=== PATIENT | female | born 1945 | race Caucasian/White ===

== ENCOUNTER 2020-03-03 13:53 | Outpatient (CLI) | payer MEDICARE, SELFPAY ==
--- NOTE | ~2020-03-03 | DEXA_ITS ---
Bone Density Report Name: Courtney Mckeon Age: 74 Sex: Female Ethnicity: White Date of : 1945 Indication: postmenopausal; cancer; Referring Provider: Ashley Tucker Study: Bone densitometry was performed. Exam Date: March 03, 2020 Accession number: [id number] Bone Density: Region BMD T-score Z-score Classification AP Spine (L1-L4) 0.828 -2.0 0.4 Osteopenia Femoral Neck (Left) 0.611 -2.1 -0.1 Osteopenia Total Hip (Left) 0.755 -1.5 0.2 Osteopenia Total Hip Bilateral Avg 0.760 -1.5 0.3 Osteopenia Femoral Neck (Right) 0.658 -1.7 0.3 Osteopenia Total Hip (Right) 0.765 -1.5 0.3 Osteopenia World Health Organization criteria for BMD impression classify patients as: Normal (T-score at or above -1.0), Osteopenia (T-score between -1.0 and -2.5), or Osteoporosis (T-score at or below -2.5). 10-year Fracture Risk(1): Major Osteoporotic Fracture 12% Hip Fracture 3.5% Reported Risk Factors: [place] (), Neck BMD=0.611, BMI=21.2 (1) FRAX(R) Version 3.08. Fracture probability calculated for an untreated patient. Fracture probability may be lower if the patient has received treatment. Clinical Information Provided by Patient: Has the following medical conditions: Cancer Patient maximum height was 62 Menopause Age: 53 Onset of menses at age 13 Number of children 1 Impression: The patient has low bone mass, based on the Left Femoral Neck T-score. The patient has an estimated ten-year risk of hip fracture of 3.5% and an estimated ten-year risk of major fracture of 12%, based on the WHO FRAX algorithm. Discussion: BONE DENSITY IS LOW AT ONE OR MORE SKELETAL SITES. THE PATIENT'S BMD AND CLINICAL RISK FACTORS CONTRIBUTE TO THIS PATIENT'S INCREASED RISK OF FRACTURE. This patient's lowest T-score is low at one or more skeletal sites. It meets the World Health Organization's (WHO) criteria for ?low bone mass? (T-score between -1.0 and -2.5). The patient's 10-year risk of hip fracture as calculated by FRAX exceeds the threshold where pharmacological therapy is recommended by the National Osteoporosis Foundation (NOF). However, all treatment decisions require clinical judgment and consideration of individual patient factors, including patient preferences, comorbidities, previous drug use, risk factors not captured in the FRAX model (e.g., frailty, falls, vitamin D deficiency, increased bone turnover, interval significant decline in bone density) and possible under or overestimation of fracture risk by FRAX. The patient should follow a healthful lifestyle (good nutrition with adequate calcium and vitamin D, and appropriate weight-bearing exercise). Follow-Up: Consider a repeat BMD and Vertebral Fracture Assessment (VFA) exam in 2 years or sooner if medically necessary, to reassess this patient's status.
--- NOTE | ~2020-03-03 | MM_ITS ---
EXAMINATION: MM screening marisa BI w funmi HISTORY: Screening mammogram TECHNIQUE: Craniocaudal and mediolateral oblique 3-D tomosynthesis images were obtained and synthetic 2-D images were generated. Bilateral rotated lateral CC views. CAD analysis was submitted and interp reted. COMPARISON: No prior mammogram is available for comparison at this institution. BREAST PARENCHYMAL COMPOSITION: The breasts are extremely dense, which lowers the sensitivity of mamm ography. FINDINGS: There is no evidence of suspicious mass, calcification, or architectural distortion to sugg est malignancy in either breast. There has been no suspicious interval change. IMPRESSION: 1. No mammographic evidence of malignancy. 2. Recommend routine screening mammography in one year. BI-RADS Category 1: Negative Reviewed, dictated and finalized at location A.
== END 2020-03-03 13:54 | disposition home or self-care (01) ==
LOC: ANHIMG 13:57
PROVIDERS: PCP Internal Medicine; Visit Provider Internal Medicine
DX: M85.89 Other specified disorders of bone density and structure, multiple sites (principal); Z12.31 Encounter for screening mammogram for malignant neoplasm of breast
CPT/HCPCS: 77063; 77067; 77080

== ENCOUNTER 2020-08-03 05:20 | Observation (INO) | payer MEDICARE, SELFPAY ==
[2020-08-03] VITALS (10 sets, daily range): BP systolic 97–113; BP diastolic 48–98; PULSE 72–120; RESP 15–23; TEMP 36.6–37; O2SAT 96–100; BMI 20.7
[2020-08-03 06:00] LABS: Basophils Percent Auto 0.2 % (0.2-1.2); Eosinophils Percent Auto 0.2 % (0-4.4); Hematocrit 25.2 % (37.0-47.0); Hemoglobin 8.3 g/dL (12.0-15.0); Immature Granulocyte Absolute 0.03 K/mm3 (0.00-0.031); Immature Granulocyte Percent A 0.2 % (0-0.5); Lymphocytes Absolute Auto 1.76 K/mm3 (0.9-3.2); Lymphocytes Percent Auto 14.4 % (18.3-44.2); Mean Corpuscular HGB Conc 32.9 g/dl (32-36); Mean Corpuscular Hemoglobin 28.8 pg (26-34); Mean Corpuscular Volume 87.5 fl (80-100); Mean Platelet Volume 9.2 fl (7.4-10.4); Monocytes Absolute Auto 0.9 K/mm3 (0.1-0.6); Monocytes Percent Auto 7.6 % (2.6-8.5); Neutrophils Absolute Auto 9.4 K/mm3 (1.3-6.7); Neutrophils Percent Auto 77.4 % (45.5-73.1); Platelet Count Result 335 k/mm3 (150-375); Red Blood Count 2.88 M/mm3 (4.2-5.4); Red Cell Distribution Width 13.4 % (11.5-14.5); White Blood Count 12.2 K/mm3 (4.5-10.0)
[2020-08-03 06:08] LABS: Add Urine Microscopic? YES; Appearance Urine Clear (Clear); Bacteria Urine Trace /hpf; Bilirubin Urine Negative (Negative); Blood Urine 3+ (Negative); Color Urine Straw (Yellow); Glucose Urine UA Negative (Negative); Ketones Urine Trace mg/dL (Negative); Leukocyte Esterase Ur Negative LEU/UL (Negative); Mucus Urine Rare /lpf; Nitrate Urine Negative (Negative); Protein Urine Negative (Negative); RBC Urine 0-2 /hpf (0-2); Specific Grav Ur 1.016 (1.001-1.035); Squamous Epithelial Cell Urine Rare /hpf (Few); Urobilinogen Urine Negative mg/dL (<2.0); WBC Urine 0-3 /hpf
[2020-08-03 06:10] LABS: Alanine Aminotransferase 19 U/L (4-35); Albumin Level 2.9 g/dL (3.5-5.1); Alkaline Phosphatase 111 U/L (38-126); Anion Gap 5 mmol/L (8-16); Aspartate Amino Transferase 25 U/L (14-36); Bilirubin,Total 0.6 mg/dL (0.2-1.3); Blood Urea Nitrogen 47 mg/dL (7-17); Calcium 7.5 mg/dL (8.4-10.2); Carbon Dioxide 25 mmol/L (22-30); Chloride 106 mmol/L (98-107); Estimated Glomerular Filt Rate > 60; Glucose 110 mg/dL (65-105); Lipase 56 U/L (23-300); Potassium 3.9 mmol/L (3.4-5.0); Sodium 136 mmol/L (137-145)
[2020-08-03 06:13] LABS: INR 1.1; Prothrombin Time 14.3 Seconds (11.1-14.7)
[2020-08-03 06:14] LABS: Partial Thromboplastin Time 32.1 SECONDS (22.3-36.8)
--- NOTE | 2020-08-03 06:20 | ED.ABDPAIN ---
HPI - Abdominal Pain General Chief Complaint: Abdominal Pain Stated Complaint: GI BLEED Time Seen by Provider: 08/03/20 05:21 Source: RN notes reviewed History of Present Illness HPI narrative: Patient presents emergency department via EMS for weakness. Patient states she is been feeling weak over the past approximately 3 weeks. She states that during this time she has been having intermittent episodes of abdominal pain located in the epigastric region as well as intermittent episodes of loose stool the patient states that time contains red blood in it. Patient states that this evening she had several episodes of dark diarrhea and had one episode of emesis. When EMS arrived they noted the emesis appeared coffee-ground in appearance. At this time she states she has no complaints outside of weakness she denies any fevers or chills chest pain shortness of breath denies any current abdominal pain nausea or vomiting. Patient states she is on no blood thinners. Recently moved here from [place] of town and last colonoscopy was over 5 years ago Related Data Home Medications Medication Instructions Recorded Confirmed levothyroxine 08/03/20 ursodiol 250 mg PO BID 08/03/20 08/03/20 Allergies Allergy/AdvReac Type Severity Reaction Status Date / Time Latex, Natural Rubber Allergy Rash Verified 08/03/20 05:35 prochlorperazine Allergy Unknown Verified 08/03/20 05:35 [From Compazine] Review of Systems Review of Systems: Narrative: Gen.: Denies fevers or chills ENT: Denies congestion Respiratory: Denies shortness of breath or cough CV: Denies chest pain or palpitations GI: See HPI denies burning, urgency, frequency or hematuria Musculoskeletal: Denies back pain or muscle pain Neuro: Generalized weakness Skin: Denies rash Except as documented, all other systems reviewed and negative [facility] Past Medical History Medical History (Updated 08/03/20 @ 06:32 by Manuel Nixon DO) Hypothyroidism Social History Social History (Updated 08/03/20 @ 06:21 by Manuel Nixon DO) Smoking status: Never smoker Exam Narrative: Exam Narrative: APPEARANCE: No acute distress, nontoxic, resting in bed EYES: EOMI HEENT: Normocephalic, atraumatic, OMM RESPIRATORY: No respiratory distress Clear to auscultation bilaterally with no rhonchi wheezing or rales. CARDIOVASCULAR: Regular rate and rhythm without murmurs rubs or gallops. ABDOMINAL: Soft, nontender, nondistended, no rebound or guarding Rectal: Hemorrhoids present with no fissures no active bleeding, black stool present that is Hemoccult positive MUSCULOSKELETAl: Moves all extremities. No clubbing, cyanosis or edema. NEURO: Awake and alert. Following commands, speech normal, no focal deficits SKIN:: Warm, dry. No rashes lesions or abrasions PSYCHIATRIC: Normal affect/mood, Course Course Emergency Course: Discussed with Dr. Mckay for GI presentation work-up. Agrees with consult at this time. Agrees with plan for Protonix 40 mg twice daily Discussed with Dr. Salas presentation work-up. Agrees with admission at this time Discussed with patient and family results of workup and diagnosis. Discussed need for admission. Patient and family understand and agree to current treatment plan Vital Signs Vital signs: Vital Signs Temperature 97.9 F 08/03/20 05:21 Pulse Rate 91 08/03/20 05:21 Respiratory Rate 23 H 08/03/20 05:21 Blood Pressure 110/55 L 08/03/20 05:21 Pulse Oximetry 99 08/03/20 05:21 Temperature 97.9 F 08/03/20 05:21 Pulse Rate 81 08/03/20 06:21 Respiratory Rate 16 08/03/20 06:21 Blood Pressure 109/98 H 08/03/20 06:21 Pulse Oximetry 99 08/03/20 06:21 MDM - Abdominal Pain Lab Data Result diagrams: 08/03/20 05:46 08/03/20 05:46 Labs: Lab Results 08/03/20 08/03/20 08/03/20 Range/Units 05:43 05:46 05:46 WBC 12.2 H (4.5-10.0) K/mm3 RBC 2.88 L (4.2-5.4) M/mm3 Hgb 8.3 L (12.0-
[2020-08-03] MEDS: SODIUM CHLORIDE 0.9% IV 1,000 ML 999 ML IV CONT (06:26)
[2020-08-03] MEDS: PANTOPRAZOLE SODIUM IV 40 MG VIAL IV PUSH ×2 (06:26→18:38)
--- NOTE | 2020-08-03 07:37 | PC.NURSE ---
called to give report and was told that the SBAR literally came out of the tube ( sbar was faxed at [phone]), I will have the nurse call you when she is out of a room.
--- NOTE | 2020-08-03 08:05 | ADMGEN ---
This patient, Courtney Mckeon, was admitted to Medical Room 252-01. Patient/family oriented to hospital policies and general routines including ID bracelet, bed and alarms, visiting hours, pain management, procedures, bathroom and other care routines, personal items, smoking policy, room service/diet, and visiting hours. Valuables list has been completed. Information on how to activate the Rapid Response Team has been discussed. Patient/Family are encouraged to report perceived risks to care and to ask questions if they do not understand what they are told or what they should do.
[2020-08-03] MEDS: SODIUM CHLORIDE 0.9% IV 1,000 ML 80 ML IV CONT ×2 (08:22→21:13)
--- NOTE | 2020-08-03 08:58 | PM.IMHP ---
H&P: HPI History of Present Illness Date/Time: 08/03/20 08:58 Chief complaint: GI bleed/symptomatic anemia Narrative: Date of admission: 08/03/2020 Date of service: 08/03/2020 Courtney Mckeon is a 74 year old female A history of hypothyroidism, primary biliary cirrhosis, and melanoma who presented to the emergency department on 08/03/2020 with complaints of epigastric pain and coffee-ground emesis. She reports that she has had several weeks of gnawing epigastric pain and lower abdominal cramping that worsens when she has bowel movements. She also complains of lightheadedness and presyncope for about 2 weeks, again associated with bowel movements. She denies straining. Early this morning, she felt nauseous and went to the bathroom. She then felt faint and lightheaded. She had a large volume of coffee-ground emesis at that time. That her noticed that she had a dark, tarry stool which filled bowl. She did not see this stool as she was lying on the ground, which helped relieve her lightheadedness. She felt short of breath during this episode. upon arrival to the emergency department, she notes feeling lightheaded upon ambulating to her room and feels that she briefly lost consciousness. She did not fall or hit her head. At arrival, hemoglobin was 8.3 and hematocrit was 25.2. She has not had any further episodes of emesis or bowel movements since presentation. At this time, she complains of headache, especially in the left temporal region. She reports chronic headaches and this feels like her typical. She also endorses nausea at this time. She reports having a colonoscopy about 5 years ago and believes that polyps were identified but is unclear when she is due for her next colonoscopy. She has never had an EGD. She reports that she often takes [id number] headache relief medication consisting of acetaminophen, aspirin, and caffeine. Review of Systems Review of Systems: Narrative: 12 systems reviewed with pertinent positive and negatives as per HPI. additionally, she denies visual changes, speech changes, dysphagia, chest pain, palpitations, constipation, diarrhea, fever, chills, dizziness , numbness, tingling, or lower extremity edema.. She feels weaker than normal. [facility] Past Medical History Medical History (Updated 08/03/20 @ 12:46 by Lisa Nunez PA-C) History of melanoma S/p local excision and systemic interferon therapy Hypothyroidism Melena Migraine Primary biliary cirrhosis Syncope Surgical History Surgical History (Updated 08/03/20 @ 12:18 by Lisa Nunez PA-C) H/O melanoma excision History of hemorrhoidectomy Family History Family History (Updated 08/03/20 @ 12:20 by Lisa Nunez PA-C) Mother Dementia Father Lung cancer Social History Social History (Updated 08/03/20 @ 12:28 by Lisa Nunez PA-C) Social History: Supriya lives at home with her . She is independent in her ADLs and remains active. Her PCP is Dr. Tucker. She designates her , Robert, as her surrogate decision maker She would like to be a full code. Smoking packs per day: 1 Smoking cigarettes per day: 20.0 Smoking status: Former smoker Tobacco type: cigarettes Additional smoking assessment comments: Smoked 1 ppd for 10 years Alcohol intake: former Alcohol use details: No alcohol use in >10 years Substance use: never Living arrangements: with family Gender identity (if verbalized by the patient): Female Spiritual care concerns: No Meds Home Medications and Allergies Home Medications Medication Instructions Recorded Confirmed Type levothyroxine 08/03/20 History ursodiol 250 mg PO BID 08/03/20 08/03/20 History Allergies Allergy/AdvReac Type Severity Reaction Status Date / Time Latex, Natural Rubber Allergy Rash Verified 08/03/20 05:35 prochlorperazine Allergy Unknown Verified 08/03/20 05:35 [From Compazine] Vital Signs Vital Signs -
[2020-08-03 09:01] LABS: Hematocrit 25.3 % (37.0-47.0); Hemoglobin 8.6 g/dL (12.0-15.0)
--- NOTE | 2020-08-03 10:09 | WPDGICN ---
Assessment and Plan Assessment and plan (1) Melena: Code(s): K92.1 - Melena Status: Acute Assessment and Plan: she came in with upper GIB, will proceed with egd tomorrow (2) Acute GI bleeding: Code(s): K92.2 - Gastrointestinal hemorrhage, unspecified Status: Acute Assessment and Plan: continue with ppi bid, avoid any nsaid's last colonoscopy about 5 years ago, she will review records to check when she would need to have next one (3) Symptomatic anemia: Code(s): D64.9 - Anemia, unspecified Status: Acute Assessment and Plan: trend h/h and transfuse if hb<7 (4) Syncope: Code(s): R55 - Syncope and collapse Status: Acute Assessment and Plan: probably from symptomatic anemia (5) Primary biliary cirrhosis: Code(s): K74.3 - Primary biliary cirrhosis Status: Acute Assessment and Plan: diagnosed in 2006, on ursodiol denies itching liver enzymes normal, no history of cirrhosis (6) Hypothyroidism: Code(s): E03.9 - Hypothyroidism, unspecified Status: Acute (7) History of melanoma: Code(s): Z85.820 - Personal history of malignant melanoma of skin Status: Acute Assessment and Plan: removed years ago GI Consult Note Consult date/time: 08/03/20 10:09 Reason for consult: melena, gib HPI: Courtney Mckeon is a 74 year old female with history of melanoma in leg 2006 that required surgery and interferon treatment when she was in [place] (2010 required another surgery), blood work around that time showed elevated AP, liver bx consistent with early PBC now on ursodiol, denies itching. Her last colonoscopy about 5 years ago elsewhere. She moved to this area about 2 years ago. For last few weeks she has been having intermittent pain in epigastric area sometimes moderate, also using [facility] pain killers for headache in daily basis . She has history of presyncope for several years but last few days feeling weak and dizzy, yesterday when she was sitting in toilet she passed out while was holding her, had coffee ground emesis and dark tarry stool, never had bleeding before. ER evaluation found hb 8.5, BUN 47, creat 0.5. Liver enzymes normal including AP 111. She does not take any ppi, never had EGD. Review of Systems Constitutional: Constitutional: Reports fatigue and Denies headache(s) Eyes: Eyes: Denies blurry vision ENT: Reports Normal hearing present, Denies headache(s) and Denies neck pain Cardiovascular: Cardiovascular: Denies chest pain and Denies dyspnea Respiratory: Respiratory: Denies dyspnea Gastrointestinal: Gastrointestinal: Reports melena and Reports vomiting Genitourinary: Genitourinary: Denies dysuria Musculoskeletal: Musculoskeletal: Denies neck pain Integumentary/Breasts: Skin/Breast: Denies dry skin Neurologic: Reports Normal hearing present, Reports dizziness and Reports syncope Psychiatric: Psychiatric: Denies anxiety Endocrine: Endocrine: Denies change in body appearance Hematologic/Lymphatic: Hematologic/Lymphatic: Denies easy bleeding Allergic/Immunologic: Allergic/Immunologic: Denies urticaria PMFSH Past Medical History Medical History (Updated 08/03/20 @ 10:17 by Karel Connors MD) History of melanoma Hypothyroidism Melena Primary biliary cirrhosis Syncope Social History Social History (Updated 08/03/20 @ 06:21 by Manuel Nixon DO) Smoking status: Never smoker Meds Home Medications and Allergies Home Medications Medication Instructions Recorded Confirmed Type levothyroxine 08/03/20 History ursodiol 250 mg PO BID 08/03/20 08/03/20 History Allergies Allergy/AdvReac Type Severity Reaction Status Date / Time Latex, Natural Rubber Allergy Rash Verified 08/03/20 05:35 prochlorperazine Allergy Unknown Verified 08/03/20 05:35 [From Compazine] Vital Signs Vital Signs - 24 hr 08/03/20 05:21 08/03/20 06:21
[2020-08-03] MEDS: ONDANSETRON INJ 4 MG/2 ML VIAL IV PUSH (13:43)
[2020-08-03] MEDS: ACETAMINOPHEN 325 MG TABLET 650 MG PO (13:43)
[2020-08-03 15:39] LABS: Hematocrit 24.1 % (37.0-47.0); Hemoglobin 8.1 g/dL (12.0-15.0)
[2020-08-03] MEDS: ursodioL 300 MG CAPSULE PO (17:49)
[2020-08-03 21:15] LABS: Hematocrit 22.2 % (37.0-47.0); Hemoglobin 7.5 g/dL (12.0-15.0)
[2020-08-04] VITALS (13 sets, daily range): BP systolic 94–129; BP diastolic 41–72; PULSE 65–77; RESP 13–28; TEMP 36.7–37.2; O2SAT 96–100
[2020-08-04] MEDS: ACETAMINOPHEN 325 MG TABLET 650 MG PO (00:15)
[2020-08-04 06:07] LABS: Hematocrit 22.7 % (37.0-47.0); Hemoglobin 7.4 g/dL (12.0-15.0); Mean Corpuscular HGB Conc 32.6 g/dl (32-36); Mean Corpuscular Hemoglobin 28.9 pg (26-34); Mean Corpuscular Volume 88.7 fl (80-100); Mean Platelet Volume 9.4 fl (7.4-10.4); Platelet Count Result 300 k/mm3 (150-375); Red Blood Count 2.56 M/mm3 (4.2-5.4); Red Cell Distribution Width 14.2 % (11.5-14.5); White Blood Count 5.7 K/mm3 (4.5-10.0)
[2020-08-04 06:34] LABS: Anion Gap 4 mmol/L (8-16); Blood Urea Nitrogen 14 mg/dL (7-17); Calcium 7.8 mg/dL (8.4-10.2); Carbon Dioxide 25 mmol/L (22-30); Chloride 107 mmol/L (98-107); Estimated CRCL calculation 65 ml/min; Estimated Glomerular Filt Rate > 60; Glucose 90 mg/dL (65-105); Potassium 3.9 mmol/L (3.4-5.0); Sodium 136 mmol/L (137-145)
[2020-08-04] MEDS: PANTOPRAZOLE SODIUM IV 40 MG VIAL IV PUSH (08:28)
[2020-08-04] MEDS: ursodioL 300 MG CAPSULE PO ×2 (08:28→16:15)
[2020-08-04] MEDS: SODIUM CHLORIDE 0.9% IV 1,000 ML 80 ML IV CONT (08:37)
[2020-08-04 08:44] LABS: Iron 27 ug/dL (37-170)
[2020-08-04 09:00] LABS: Percent Iron Saturation 8 % (20-50)
[2020-08-04 10:23] LABS: Folic Acid > 20.0 ng/mL (2.76->20)
[2020-08-04] MEDS: LACTATED RINGERS 1,000 ML 150 ML IV CONT (11:25)
--- NOTE | 2020-08-04 11:50 | WPDANESEPPF ---
Anes - Initial Pre Proc Eval Procedure: Operation Date: 08/04/20 13:30 Proposed Procedures p Esophagogastroduodenoscopy - Karel Connors MD Date/Time: 08/04/20 11:50 Surgeon: Lisa Nunez PA-C Pre Op Diagnosis: GI bleed/symptomatic anemia Patient Data Age: 74 Gender: F Height: 5 ft 2 in Weight: 51.6 kg Last Vital Signs Temp 98.2 F 08/04/20 11:27 Pulse 69 08/04/20 11:27 Resp 16 08/04/20 11:27 BP 94/41 L 08/04/20 11:27 Pulse Ox 98 08/04/20 11:27 Allergies Allergy/AdvReac Type Severity Reaction Status Date / Time Latex, Natural Rubber Allergy Rash Verified 08/04/20 11:21 prochlorperazine Allergy Unknown Verified 08/04/20 11:21 [From Compazine] Home Medications Medication Instructions Recorded Confirmed Type levothyroxine 88 mcg PO DAILY 08/03/20 08/03/20 History ursodiol 300 mg PO BID 08/03/20 08/03/20 History Laboratory Tests 08/03/20 08/03/20 08/04/20 15:20 20:39 05:34 WBC RBC Hgb 8.1 g/dL L g/dL 7.5 g/dL L g/dL (12.0-15.0) (12.0-15.0) Hct 24.1 % L % 22.2 % L % (37.0-47.0) (37.0-47.0) MCV MCH MCHC RDW Plt Count MPV Sodium Potassium Chloride Carbon Dioxide Anion Gap BUN Creatinine Estim Creat Clear Calc Estimated GFR Glucose Calcium Iron 27 ug/dL L ug/dL (37-170) TIBC 345 ug/dL ug/dL (261-462) % Saturation 8 % L % (20-50) Ferritin 17.20 ng/mL ng/mL (11.1-264) Vitamin B12 Folate TSH (Reflex) 2.110 uIU/mL uIU/mL (0.465-4.68) 08/04/20 08/04/20 05:34 05:34 WBC 5.7 K/mm3 K/mm3 (4.5-10.0) RBC 2.56 M/mm3 L M/mm3 (4.2-5.4) Hgb 7.4 g/dL L g/dL (12.0-15.0) Hct 22.7 % L % (37.0-47.0) MCV 88.7 fl fl (80-100) MCH 28.9 pg pg (26-34) MCHC 32.6 g/dl g/dl (32-36) RDW 14.2 % % (11.5-14.5) Plt Count 300 k/mm3 k/mm3 (150-375) MPV 9.4 fl fl (7.4-10.4) Sodium 136 mmol/L L mmol/L (137-145) Potassium 3.9 mmol/L mmol/L (3.4-5.0) Chloride 107 mmol/L mmol/L (98-107) Carbon Dioxide 25 mmol/L mmol/L (22-30) Anion Gap 4 mmol/L L mmol/L (8-16) BUN 14 mg/dL D mg/dL (7-17) Creatinine 0.50 mg/dL L mg/dL (0.7-1.0) Estim Creat Clear Calc 65 ml/min ml/min Estimated GFR > 60 (59 - ) Glucose 90 mg/dL mg/dL (65-105) Calcium 7.8 mg/dL L mg/dL (8.4-10.2) Iron TIBC % Saturation Ferritin Vitamin B12 516.0 pg/mL pg/mL (239-931) Folate > 20.0 ng/mL H ng/mL (2.76->20) TSH (Reflex) Patient hx anesthesia problems: none Family hx anesthesia problems: none [facility] Past Medical History Medical History (Updated 08/03/20 @ 12:46 by Lisa Nunez PA-C) History of melanoma S/p local excision and systemic interferon therapy Hypothyroidism Melena Migraine Primary biliary cirrhosis Syncope Surgical History Surgical History (Updated 08/03/20 @ 12:18 by Lisa Nunez PA-C) H/O melanoma excision History of hemorrhoidectomy Family History Family History (Updated 08/03/20 @ 12:20 by Lisa Nunez PA-C) Mother Dementia Father Lung cancer Social History Social History (Updated 08/03/20 @ 12:28 by Lisa Nunez PA-C) Social History: 1979Joan lives at home with her . She is independent in her ADLs and remains active. Her PCP is Dr. Tucker. She designates her , Robert, as her surrogate decision maker She would like to be a full code. Smoking packs per day: 1 Smoking cigarettes per day: 20.0 Smoking status: Former smoker Tobacco type: cigarettes Usama
--- NOTE | 2020-08-04 11:54 | PC.NURSE ---
Patient to GI lab via stretcher, IV intact and saline locked.
--- NOTE | 2020-08-04 13:26 | PC.NURSE ---
Patient returned from GI lab, IV intact.
[2020-08-04 14:17] LABS: Hematocrit 21.3 % (37.0-47.0)
--- NOTE | 2020-08-04 14:47 | PM.IMPN ---
Progress Note: A&P Assessment and Plan (1) Gastric ulcer: Code(s): K25.9 - Gastric ulcer, unspecified as acute or chronic, without hemorrhage or perforation Status: Acute Assessment and Plan: Patient noted to have melena and coffee ground emesis with epigastric pain. She had EGD today which showed erosive gastritis with ulcerative changes and multiple superficial ulcers in antrum. No stigmata of ongoing bleeding. Biopsies taken for rapid urease. GI Dr. Mckay has been consulted and recommendations are appreciated Transition to oral PPI bid; discontinue IV protonix Avoid NSAIDs. Repeat EGD in 6 months (2) Symptomatic anemia: Code(s): D64.9 - Anemia, unspecified Status: Acute Assessment and Plan: No prior labs are available for review to establish baseline, although this is most likely due to acute blood loss. Vital signs are stable and there is no evidence of active bleeding at this time. Gradual decline in H&H with hgb 7.0 this afternoon. Iron panel is consistent with iron deficiency anemia. B12 and folate wnl. Transfuse 1 unit pRBC Repeat H&H 1 hour after transfusion and monitor q6h following. (3) Syncope: Qualifiers: Syncope type: unspecified Qualified Code(s): R55 - Syncope and collapse Code(s): R55 - Syncope and collapse Status: Acute Assessment and Plan: Several episodes of presyncope the past week with episode of syncope in ED. More than likely due to symptomatic anemia. She is not orthostatic. Monitor H&H Obtain EKG. Ordered yesterday afternoon but still not completed. (4) Migraine: Qualifiers: Migraine type: chronic without aura Status migrainosus presence: without status migrainosus Intractability: not intractable Qualified Code(s): G43.709 - Chronic migraine without aura, not intractable, without status migrainosus Code(s): G43.909 - Migraine, unspecified, not intractable, without status migrainosus Status: Acute Assessment and Plan: She complains of migraines in the left temporal region that occur most days of the month. She had been taking OTC Excedrin. She complained of 7/10 migraine pain yesterday but has no headache at this time. Avoid NSAIDs given gastric ulcers Continue fioricet as needed She will need to follow up with her PCP and may benefit from neurology referral given frequency and intensity of migraines. (5) Hypothyroidism: Qualifiers: Hypothyroidism type: unspecified Qualified Code(s): E03.9 - Hypothyroidism, unspecified Code(s): E03.9 - Hypothyroidism, unspecified Status: Acute Assessment and Plan: Chronic. TSH is wnl. Continue levothyroxine. (6) Primary biliary cirrhosis: Code(s): K74.3 - Primary biliary cirrhosis Status: Acute Assessment and Plan: Chronic. Her PCP is currently in the process of referring her to a pulp beater at [facility], although this was delayed due to COVID-19 office closure issues. LFTs are wnl. Continue ursodiol Subjective Date/time seen: 08/04/20 14:47 Interval history: Date of service: 08/04/2020 Courtney Mckeon is a 74 year old female with a history of hypothyroidism, PBC, and melanoma who is seen in follow up for UGI bleed. She had an EGD today which revealed gastric ulcers. She tolerated the procedure well. She denies any epigastric pain, abdominal pain, cramping, or bloating. She is requesting lunch. No nausea or vomiting. No additional episodes of hematemesis or melena. No bleeding or bruising. She states she feels better today than she has in several days. Headache has improved. No additional concerns at this time. Review of Systems Review of Systems: Narrative: 12 systems reviewed with pertinent positives and negatives as per HPI. Exam Narrative: Exam Narrative: Ms. Mckeon is a well-nourished, well-appearing 74-year-old female who is lying supine i
[2020-08-04] MEDS: SODIUM CHLORIDE 0.9% IV 250 ML 30 ML IV CONT (15:23)
--- NOTE | 2020-08-04 16:00 | ECG_ITS ---
Measurements Intervals [place] Rate: 73 P: 57 MA: 168 QRS: 15 QRSD: 76 T: 28 QT: 387 QTc: 429 Interpretive Statements SINUS RHYTHM LOW QRS VOLTAGE IN PRECORDIAL LEADS CANNOT RULE OUT SEPTAL INFARCT, AGE INDETERMINATE ABNORMAL ECG Electronically Signed On 08-04-2020 16:35:49 CDT by Sarbjit Fenton D.O.
[2020-08-04] MEDS: PANTOPRAZOLE 40 MG TABLET PO (21:00)
[2020-08-04 21:41] LABS: Hematocrit 25.5 % (37.0-47.0); Hemoglobin 8.8 g/dL (12.0-15.0)
[2020-08-05 01:23] LABS: Hematocrit 25.6 % (37.0-47.0); Hemoglobin 8.9 g/dL (12.0-15.0)
[2020-08-05 05:44] VITALS: BP 116/63; PULSE 74; RESP 16; TEMP 36.9; O2SAT 98
[2020-08-05] MEDS: LEVOTHYROXINE SODIUM 88 MCG TABLET BY MOUTH (06:14)
[2020-08-05 07:22] LABS: Hematocrit 26.9 % (37.0-47.0); Hemoglobin 9.1 g/dL (12.0-15.0); Mean Corpuscular HGB Conc 33.8 g/dl (32-36); Mean Corpuscular Hemoglobin 29.1 pg (26-34); Mean Corpuscular Volume 85.9 fl (80-100); Mean Platelet Volume 8.8 fl (7.4-10.4); Platelet Count Result 284 k/mm3 (150-375); Red Blood Count 3.13 M/mm3 (4.2-5.4); Red Cell Distribution Width 13.4 % (11.5-14.5); White Blood Count 5.5 K/mm3 (4.5-10.0)
[2020-08-05 07:38] LABS: Anion Gap 5 mmol/L (8-16); Blood Urea Nitrogen 12 mg/dL (7-17); Calcium 8.1 mg/dL (8.4-10.2); Carbon Dioxide 27 mmol/L (22-30); Chloride 104 mmol/L (98-107); Estimated CRCL calculation 55 ml/min; Estimated Glomerular Filt Rate > 60; Glucose 90 mg/dL (65-105); Sodium 136 mmol/L (137-145)
[2020-08-05 08:00] VITALS: PULSE 74; RESP 16; O2SAT 98
[2020-08-05] MEDS: PANTOPRAZOLE 40 MG TABLET PO (08:57)
[2020-08-05] MEDS: ursodioL 300 MG CAPSULE PO (08:57)
--- NOTE | 2020-08-05 10:20 | PM.DS ---
DS: Admitting Diagnosis Admitting Diagnosis Admitting Diagnosis: GI bleed/symptomatic anemia DS: Discharge Diagnosis Discharge Diagnosis (1) Gastric ulcer: Code(s): K25.9 - Gastric ulcer, unspecified as acute or chronic, without hemorrhage or perforation Status: Acute Assessment and Plan: Patient noted to have melena and coffee ground emesis with epigastric pain. She had EGD on 08/04/[address] Mckay which showed erosive gastritis with ulcerative changes and multiple superficial ulcers in antrum. No stigmata of ongoing bleeding. Pathology suggestive of etiology other than H. pylori. She will continue protonix bid. Avoid all NSAIDs. Repeat EGD in 6 months to assess for healing. (2) Symptomatic anemia: Code(s): D64.9 - Anemia, unspecified Status: Acute Assessment and Plan: No prior labs are available for review to establish baseline. Anemia most likely due to acute blood loss. Gradual decline in H&H with Hgb rustam 7.0. She received 1 unit pRBC on 08/04/20. [place] to be secondary to blood loss from bleeding gastric ulcers. No evidence of ongoing bleeding noted on EGD and suspect continued improvement. Hgb 9.1 at time of discharge. Repeat H&H in 1 week. (3) Syncope: Qualifiers: Syncope type: unspecified Qualified Code(s): R55 - Syncope and collapse Code(s): R55 - Syncope and collapse Status: Acute Assessment and Plan: Several episodes of presyncope the past week with episode of syncope in ED at presentation on 08/03/20. [place] to be secondary to symptomatic anemia. She is not orthostatic. EKG unremarkable. TSH wnl. Repeat H&H in 1 week and follow up with PCP. (4) Migraine: Qualifiers: Intractability: not intractable Migraine type: chronic without aura Status migrainosus presence: without status migrainosus Qualified Code(s): G43.709 - Chronic migraine without aura, not intractable, without status migrainosus Code(s): G43.909 - Migraine, unspecified, not intractable, without status migrainosus Status: Acute Assessment and Plan: She complains of migraines in the left temporal region that occur most days of the month. She had been taking OTC Excedrin containing aspirin. Excedrin with aspirin should be discontinued. Received fioricet during admission with resolution of headaches. Educated on importance of discontinuing all NSAID products including her OTC excedrin. Recommended transition to OTC acetaminophen + caffeine. Encouraged her to discuss ongoing migraines with frequency and severity with PCP for possible neurology referral. (5) Hypothyroidism: Qualifiers: Hypothyroidism type: unspecified Qualified Code(s): E03.9 - Hypothyroidism, unspecified Code(s): E03.9 - Hypothyroidism, unspecified Status: Acute Assessment and Plan: Chronic. TSH is wnl. Continue levothyroxine. (6) Primary biliary cirrhosis: Code(s): K74.3 - Primary biliary cirrhosis Status: Acute Assessment and Plan: Chronic. Her PCP is currently in the process of referring her to a administrative intern at [facility], although this was delayed due to COVID-19 office closure issues. LFTs are wnl. Continue ursodiol DS: Summary Hospital Course Reason for hospitalization: Melena, coffee-ground emesis, weakness Hospital Course: Date of admission: 08/03/2020 Date of discharge: 08/05/2020 Courtney Mckeon is a 75 year old female with a history of hypothyroidism, primary biliary cirrhosis, and melanoma who presented to the emergency department on 08/03/2020 with complaints of epigastric pain and coffee-ground emesis. She had been having gnawing epigastric pain for weeks, and over the past week she began feeling weak and having episodes of pre-syncope, especially with bowel movements. She reports almost daily NSAID use. At presentation, VSS, WBC 12.2, Hgb 8.3, Hct 25.2, plt 335, and electrolytes stable. Please see H&P for further detail
== END 2020-08-05 12:45 | disposition home or self-care (01) ==
LOC: ANHED 06:32 → ANH2MED 06:47
PROVIDERS: Internal Medicine Gastroenterology; Physician Assistant; Admitting Provider Family Medicine; Emergency Provider Emergency Medicine; PCP Internal Medicine; Visit Provider Family Medicine
PROC: 0DJ08ZZ Inspection of Upper Intestinal Tract, Via Natural or Artificial Opening Endoscopic (ICD-10-PCS; CPT 43235; principal; 2020-08-04 13:30)
DX: R10.13 Epigastric pain (principal); K92.1 Melena; E03.9 Hypothyroidism, unspecified; D64.9 Anemia, unspecified; K74.3 Primary biliary cirrhosis; R11.0 Nausea; R55 Syncope and collapse; G43.709 Chronic migraine without aura, not intractable, without status migrainosus; Z85.820 Personal history of malignant melanoma of skin; K44.9 Diaphragmatic hernia without obstruction or gangrene; K29.70 Gastritis, unspecified, without bleeding; K25.9 Gastric ulcer, unspecified as acute or chronic, without hemorrhage or perforation; K29.50 Unspecified chronic gastritis without bleeding; R94.31 Abnormal electrocardiogram [ECG] [EKG]
CPT/HCPCS: 43239; 36415; 36430; 80048; 80053; 81001; 82607; 82728; 82746; 83540; 83550; 83690; 84443; 85014; 85018; 85025; 85027; 85610; 85730; 86850; 86900; 86901; 86923; 87081; 88305; 93005; 96361; 96374; 99285; A9270; C9113; G0378; J2405; J2704; J7030; J7050; J7120; P9016

== ENCOUNTER → 2021-01-16 12:23 | Outpatient (CLI) | payer MEDICARE, SELFPAY ==
--- NOTE | ~2021-01-16 | MR_ITS ---
EXAMINATION: MR abdomen wo/w con DATE: 01/16/2021 13:40 INDICATION: Primary biliary cirrhosis. Abnormal liver function tests. TECHNIQUE: Magnetic resonance imaging (MRI) of the abdomen was performed without and with 9 mL MultiH ance intravenous contrast. Sequences included coronal T2-weighted FS FSE, coronal and axial FS FIESTA , axial T2-weighted FSE, coronal LAVA-flex, axial STIR FSE, axial DWI, axial dual-echo T1-weighted FS PGR, and axial LAVA. Postcontrast sequences included coronal LAVA-flex and a time course of axial LAV A. COMPARISON: None. FINDINGS: There are no arterial phase postcontrast images. The liver, gallbladder, spleen, pancreas, adrenal gl ands, and right kidney are normal. There is a 5 mm cyst in left kidney. There are no dilated loops of bowel. There are no pathologically enlarged lymph nodes. There is no free intraperitoneal fluid. IMPRESSION: 1. Normal liver. Reviewed, dictated and finalized at location A. TENDER IMPRESSION: 1. Normal liver.
[2021-01-16 12:52] LABS: Estimated Glomerular Filt Rate > 60
[2021-01-19 08:36] LABS: Estimated Glomerular Filt Rate > 60
== END ==
PROVIDERS: Visit Provider Internal Medicine
DX: K74.5 Biliary cirrhosis, unspecified (principal)
CPT/HCPCS: 74183; A9577

== ENCOUNTER 2021-03-06 08:30 | Outpatient (CLI) | payer MEDICARE, SELFPAY ==
--- NOTE | ~2021-03-06 | MM_ITS ---
EXAMINATION: MM screening marisa BI w funmi HISTORY: Screening mammogram TECHNIQUE: Craniocaudal and mediolateral oblique 3-D tomosynthesis images were obtained and synthetic 2-D images were generated. CAD analysis was submitted and interpreted. COMPARISON: No prior mammogram is available for comparison at this institution. BREAST PARENCHYMAL COMPOSITION: The breasts are extremely dense, which lowers the sensitivity of mamm ography. FINDINGS: There is no evidence of suspicious mass, calcification, or architectural distortion to sugg est malignancy in either breast. There has been no suspicious interval change. IMPRESSION: 1. No mammographic evidence of malignancy. 2. Recommend routine screening mammography in one year. BI-RADS Category 1: Negative Reviewed, dictated and finalized at location A.
== END 2021-03-06 08:31 | disposition home or self-care (01) ==
LOC: ANHIMG 08:33
PROVIDERS: PCP Internal Medicine; Visit Provider Internal Medicine
DX: Z12.31 Encounter for screening mammogram for malignant neoplasm of breast (principal)
CPT/HCPCS: 77063; 77067

== ENCOUNTER → 2021-07-16 09:37 | Outpatient (CLI) | payer MEDICARE, SELFPAY ==
--- NOTE | ~2021-07-16 | MR_ITS ---
EXAMINATION: MR brain/brain stem wo/w con EXAM DATE: 07/16/2021 10:41 INDICATION: Left-sided headaches. Symptoms progressing. TECHNIQUE: Magnetic resonance imaging (MRI) of the brain/brain stem obtained without contrast. Sagit padmini T1, axial diffusion, gradient echo (T2*), T1, T2, FLAIR sequences obtained. Patient was then inj ected with 10 cc intravenous Multihance contrast. Axial and coronal postcontrast T1 weighted sequence s obtained. There is no prior study for comparison. FINDINGS: There are no areas of restricted diffusion to suggest acute infarction. There is no acute hemorrhage seen on the T2*, a hemosiderin sensitive sequence. No intraparenchymal brain mass. The ve ntricles are normal in size. There are no extra-axial collections. Flow voids are seen in the cereb ral arteries on the T2-weighted sequences consistent with their expected patency. The orbits are unr emarkable. Soft tissue is unremarkable. There are no areas of abnormal enhancement on the postcont rast images. IMPRESSION: 1. Unremarkable brain MRI examination. Reviewed, dictated and finalized at location A.
[2021-07-16 10:13] LABS: Estimated Glomerular Filt Rate > 60
== END ==
PROVIDERS: PCP Internal Medicine; Visit Provider Internal Medicine
DX: R51.9 Headache, unspecified (principal)
CPT/HCPCS: 70553; A9577

== ENCOUNTER → 2022-03-17 07:50 | Outpatient (CLI) | payer MEDICARE, SELFPAY ==
--- NOTE | ~2022-03-17 | US_ITS ---
US right upper quadrant INDICATION: Primary biliary cirrhosis PROCEDURE: Realtime right upper abdominal ultrasound. COMPARISON: No prior studies for comparison. FINDINGS: The pancreas is normal without focal mass or pancreatic ductal dilation. Liver echotexture is normal without focal mass or intrahepatic biliary dilatation. There is normal directional flow i n the portal vein. The gallbladder is normal without stones, gallbladder wall thickening or pericholecystic fluid. There is a 4 mm gallbladder polyp. Common bile duct measures 3 mm. No sonographic Blake's sign. IMPRESSION: 1: Gallbladder polyp measuring 4 mm. Otherwise, unremarkable limited abdominal ultrasound. Reviewed, dictated and finalized at location A.
== END ==
PROVIDERS: PCP Internal Medicine; Visit Provider Internal Medicine
DX: K74.3 Primary biliary cirrhosis (principal); K82.4 Cholesterolosis of gallbladder
CPT/HCPCS: 76705

== ENCOUNTER 2022-04-14 08:41 | Outpatient (CLI) | payer MEDICARE, SELFPAY ==
--- NOTE | ~2022-04-14 | MM_ITS ---
EXAMINATION: MM screening [facility] BI w funmi HISTORY: Screening mammogram TECHNIQUE: Craniocaudal and mediolateral oblique 3-D tomosynthesis images were obtained and synthetic 2-D images were generated. CAD analysis was submitted and interpreted. COMPARISON: 03/06/2021, 03/03/2020 BREAST PARENCHYMAL COMPOSITION: The breasts are extremely dense, which lowers the sensitivity of mamm ography. FINDINGS: RIGHT BREAST: There is focal asymmetry in the posterior third of the upper breast. LEFT BREAST: There is no suspicious mass, calcification, or architectural distortion to suggest malig mamta. There has been no significant interval change. IMPRESSION: 1. Right breast focal asymmetry. 2. Additional mammographic views and possible breast ultrasound are recommended. BI-RADS Category 0: Incomplete: Needs additional imaging evaluation. Reviewed, dictated and finalized at location A. IMPRESSION: 1. Right breast focal asymmetry. 2. Additional mammographic views and possible breast ultrasound are recommended . BI-RADS Category 0: Incomplete: Needs additional imaging evaluation.
== END 2022-04-14 08:42 | disposition home or self-care (01) ==
LOC: ANHIMG 08:43
PROVIDERS: PCP Internal Medicine; Visit Provider Internal Medicine
DX: Z12.31 Encounter for screening mammogram for malignant neoplasm of breast (principal); R92.8 Other abnormal and inconclusive findings on diagnostic imaging of breast
CPT/HCPCS: 77063; 77067

== ENCOUNTER 2022-05-05 12:47 | Outpatient (CLI) | payer MEDICARE, SELFPAY ==
--- NOTE | ~2022-05-05 | MMUS_ITS ---
EXAMINATION: MM diagnostic marisa RT w funmi, US breast RT limited HISTORY: Focal right breast asymmetry TECHNIQUE: Additional 3-D tomosynthesis images of the right breast were performed and synthetic 2-D i mages were generated. CAD analysis was submitted and interpreted. High resolution Limited right breas t ultrasound was performed. COMPARISON: Comparison to multiple prior studies sequentially, with oldest reviewed study dated 03/03. BREAST PARENCHYMAL COMPOSITION: The breasts are extremely dense, which lowers the sensitivity of mamm ography FINDINGS: MAMMOGRAPHIC FINDINGS: There are no suspicious masses, calcifications or architectural distortion in the right breast to sug gest malignancy. ULTRASOUND: Limited right breast ultrasound: Normal heterogeneous echotexture without focal solid or cystic mass. IMPRESSION: 1. No evidence for malignancy in the right breast. 2. Routine yearly screening mammogram and regular clinical breast examination are recommended. BI-RADS Category 1: Negative Reviewed, dictated and finalized at location A. IMPRESSION: 1. No evidence for malignancy in the right breast. 2. Routine yearly screening mammogram and regular clinical breast examination a re recommended. BI-RADS Category 1: Negative
== END 2022-05-05 12:48 | disposition home or self-care (01) ==
PROVIDERS: PCP Internal Medicine; Visit Provider Internal Medicine
DX: R92.8 Other abnormal and inconclusive findings on diagnostic imaging of breast (principal)
CPT/HCPCS: 76642; 77061; 77065; G0279

== ENCOUNTER 2023-01-22 11:04 | Emergency (ER) | payer MEDICARE, SELFPAY ==
[2023-01-22 11:14] VITALS: BP 165/82; PULSE 86; RESP 18; TEMP 37.1; O2SAT 100
--- NOTE | 2023-01-22 11:30 | ED.GENADULT ---
HPI - General Adult General Chief complaint: Unspecified Stated complaint: COVID Time Seen by Provider: 01/22/23 11:26 Source: patient Mode of arrival: ambulatory Limitations: no limitations History of Present Illness HPI narrative: This is a 77-year-old female that tested positive for COVID at home and presents because a neighbor advised her to come to the ER and be evaluated. Otherwise patient has afebrile with no shortness of breath O2 sats 100% on room air otherwise her vitals are stable no chest pain does have a mild nonproductive cough with some nasal congestion no nausea vomiting no abdominal pain no diarrhea constipation. Onset (ago): hour(s) Related Data Home Medications Medication Instructions Recorded Confirmed levothyroxine 88 mcg tablet 88 mcg PO DAILY 08/03/20 08/03/20 ursodiol 250 mg tablet 300 mg PO BID 08/03/20 08/03/20 Allergies Allergy/AdvReac Type Severity Reaction Status Date / Time Latex, Natural Rubber Allergy Rash Verified 01/22/23 11:33 prochlorperazine Allergy Unknown Verified 01/22/23 11:33 [From Compazine] Review of Systems Review of Systems: All systems reviewed & are unremarkable except as noted in HPI and below PMFSH Past Medical History Medical History History of melanoma S/p local excision and systemic interferon therapy Hypothyroidism Melena Migraine Primary biliary cirrhosis Syncope Surgical History Surgical History H/O melanoma excision History of hemorrhoidectomy Family History Family History Mother Dementia Father Lung cancer Social History Social History Social History: Supriya lives at home with her . She is independent in her ADLs and remains active. Her PCP is Dr. Tucker. She designates her , Robert, as her surrogate decision maker She would like to be a full code. Smoking packs per day: 1 Smoking cigarettes per day: 20.0 Smoking status: Former smoker Tobacco type: cigarettes Additional smoking assessment comments: Smoked 1 ppd for 10 years Alcohol intake: former Alcohol use details: No alcohol use in >10 years Substance use: never Living arrangements: with family Gender identity (if verbalized by the patient): Female Spiritual care concerns: No Exam Const: General: cooperative, healthy appearing and comfortable HENMT: Head: normal to inspection Face/Nose/Sinus: Normal external nose present Face and sinus: normal facial exam Mouth: Yes Normal oral and palatal mucosa present Throat: posterior oropharynx normal Eyes: Visual Dexter: normal visual dexter by confrontation Neck: Neck: normal visual inspection, full ROM and no lymphadenopathy Chest: Chest palpation & inspection: normal inspection of the chest Resp: Effort & Inspection: normal respiratory effort Auscultation: clear to auscultation bilaterally Cardio: Palpation: normal PMI Rate: regular rate Rhythm: regular rhythm GI: Inspection: normal to inspection Percussion: Yes normal to percussion : General: Yes bimanual renal exam normal bilaterally Back/Spine/Pelvis: Back: no CVA tenderness Skin: General skin exam: normal color and no rashes or lesions noted Neuro: General: oriented to person, oriented to place and oriented to time Extrem: General: normal to inspection Psych: Appearance: grossly normal Mental Status: mental status grossly normal Course Course Emergency Course: Patient examined declined having any further testing here and declined any medication for COVID. Vital Signs Vital signs: Vital Signs Temperature 37.1 C 01/22/23 11:14 Pulse Rate 86 01/22/23 11:14 Respiratory Rate 18 01/22/23 11:14 Blood Pressure 165/82 H 01/22/23 11:14 Pulse Oximetry 100 01/22/23 11:14 Oxygen Deliv
== END 2023-01-22 11:43 | disposition home or self-care (01) ==
LOC: CHSED 11:41
PROVIDERS: Emergency Provider Emergency Medicine; PCP Internal Medicine
DX: U07.1 COVID-19 (principal); E03.9 Hypothyroidism, unspecified; Z87.891 Personal history of nicotine dependence
CPT/HCPCS: 99281

== ENCOUNTER 2023-07-22 08:46 | Outpatient (CLI) | payer MEDICARE, SELFPAY ==
--- NOTE | ~2023-07-22 | MM_ITS ---
EXAMINATION: MM screening [facility] BI w funmi HISTORY: Screening mammogram TECHNIQUE: Craniocaudal and mediolateral oblique 3-D tomosynthesis images were obtained and synthetic 2-D images were generated. CAD analysis was submitted and interpreted. COMPARISON: 05/05/2022 diagnostic right mammogram and Limited right breast ultrasound examination 04/14/2022, 03/06/2021, 03/03/2020 bilateral screening mammogram examinations BREAST PARENCHYMAL COMPOSITION: The breasts are extremely dense, which lowers the sensitivity of mamm ography. FINDINGS: There is focal asymmetry in the posterior upper right breast on MLO view. Possible bilateral breast masses. The extremely dense stroma may obscure masses. IMPRESSION: 1. Focal asymmetry, posterior upper right breast on MLO view. Extremely dense stroma which may obscur e bilateral breast masses. 2. Diagnostic right mammogram and bilateral complete breast ultrasound examination are recommended BI-RADS Category 0: Incomplete: Needs additional imaging evaluation. Reviewed, dictated and finalized at location A. IMPRESSION: 1. Focal asymmetry, posterior upper right breast on MLO view. Extremely dense s troma which may obscure bilateral breast masses. 2. Diagnostic right mammogram and bilateral complete breast ultrasound examinat ion are recommended BI-RADS Category 0: Incomplete: Needs additional imaging evaluation.
== END 2023-07-22 08:47 | disposition home or self-care (01) ==
LOC: ANHIMG 08:51
PROVIDERS: PCP Internal Medicine; Visit Provider Internal Medicine
DX: Z12.31 Encounter for screening mammogram for malignant neoplasm of breast (principal); R92.8 Other abnormal and inconclusive findings on diagnostic imaging of breast
CPT/HCPCS: 77063; 77067

== ENCOUNTER 2023-08-11 11:49 | Outpatient (CLI) | payer MEDICARE, SELFPAY ==
--- NOTE | ~2023-08-11 | MMUS_ITS ---
EXAMINATION: MM diagnostic marisa RT w funmi, US breast RT limited HISTORY: Right breast asymmetry on screening mammogram TECHNIQUE: Additional 3-D tomosynthesis images of the right breast were performed and synthetic 2-D i mages were generated. CAD analysis was submitted and interpreted. High resolution limited right breas t ultrasound was performed. COMPARISON: 07/22/2023, 05/05/2022, 04/14/2022, 03/06/2021 FINDINGS: MAMMOGRAPHIC FINDINGS: There is asymmetry with a possible area of architectural distortion in the far posterior third of the central right breast 8.5 cm from the nipple. No suspicious calcification is identified. ULTRASOUND: There is no evidence of focal abnormal solid or cystic mass in the vicinity of the mammographic findi ng in question. IMPRESSION: 1. Right breast asymmetry without definite sonographic correlate. 2. Recommend 6 month follow-up right diagnostic mammogram and possible ultrasound BI-RADS category 3, probably benign findings. Reviewed, dictated and finalized at location A. IMPRESSION: 1. Right breast asymmetry without definite sonographic correlate. 2. Recommend 6 month follow-up right diagnostic mammogram and possible ultrasou nd BI-RADS category 3, probably benign findings.
== END 2023-08-11 11:50 | disposition home or self-care (01) ==
PROVIDERS: PCP Internal Medicine; Visit Provider Internal Medicine
DX: R92.8 Other abnormal and inconclusive findings on diagnostic imaging of breast (principal)
CPT/HCPCS: 76642; 77061; 77065; G0279

== ENCOUNTER 2023-11-08 13:00 | Outpatient (CLI) | payer MEDICARE, SELFPAY | END 2023-11-08 13:01 | disposition home or self-care (01) | PROVIDERS: PCP Internal Medicine; Visit Provider Specialist | DX: C44.42 Squamous cell carcinoma of skin of scalp and neck (principal) | CPT/HCPCS: 88305 ==

== ENCOUNTER 2024-02-28 12:33 | Outpatient (CLI) | payer MEDICARE, SELFPAY ==
--- NOTE | ~2024-02-28 | CT_ITS ---
EXAMINATION: CT abdomen wo/w con DATE: 02/28/2024 13:39 INDICATION: Abdominal mass TECHNIQUE: Computed tomography (CT) of the abdomen and pelvis was performed without and with 100 cc O mnipaque 350 intravenous contrast. The dose-length product was 441.78 mGy-cm. Automated exposure cont rol and iterative reconstruction technique were employed. COMPARISON: MRI dated 01/16/2021. FINDINGS: There is dependent atelectasis. Heart size normal. The liver, spleen, pancreas, adrenal gla nds are unremarkable. There are small subcentimeter hypodensities of the kidneys, too small to charac terize, although statistically likely benign cysts. Gallbladder is present. Nonobstructive bowel gas pattern. Moderate colonic fecal loading. No significant vascular abnormality. No free air or free flu id. No lymphadenopathy. There is mild lumbar spondylosis. IMPRESSION: 1. Unremarkable CT abdomen. Reviewed, dictated and finalized at location B. IMPRESSION: 1. Unremarkable CT abdomen.
[2024-02-28 13:27] LABS: Estimated Glomerular Filt Rate > 60
== END 2024-02-28 12:34 ==
LOC: MICIMG 12:41
PROVIDERS: PCP Internal Medicine
DX: C50.919 Malignant neoplasm of unspecified site of unspecified female breast (principal); Z17.0 Estrogen receptor positive status [ER+]; R92.8 Other abnormal and inconclusive findings on diagnostic imaging of breast
CPT/HCPCS: 74170; Q9967

== ENCOUNTER 2025-10-01 14:13 | Outpatient (CLI) | payer MEDICARE, SELFPAY ==
--- OUTSIDE RECORDS SUMMARY | 2020-03-02 23:00 | XMS_ITS | Encounter Summary ---
Author Organization [facility] Healthcare Address [address] [place] [address] Care Team Providers Care Synthetic Resin Operator Name Role Phone Unavailable Primary Care Provider Unavailabl e Reason for Visit * Diagnostic Imaging (Routine) - Closed Specialty Diagnoses / Procedures Referred By Ileana t Referred To Contact Procedures Breast Imaging Screening Outside Reference Chana Rossi NP [address] [facility] [id number] [place] [address] Phone: tel: fax: Referral ID Status Reason Start Date Expiration Date Visits Re quested Visits Authorized [id number] Closed 09/02/2023 10/01/2024 1 1 Encounter Details Date Type Department Care Team (Late st Contact Info) Description 03/03/2020 Hospital Encounter [facility] [address] [place], [place] [id number] Social History Tobacco Use Types Packs/Day Years Used Date Smoking Tobacco: Former Cigarettes 1 1978 Passive Smoke Exposure: Never Smokeless Tobacco: Never AUDIT-C Answer Date Recorded Q1: How often do you have a drink containing alcohol? Never 01/03/2024 Q2: How many drinks containi ng alcohol do you have on a typical day when you are drinking? Patient does not drink Q3: How often do you have si x or more drinks on one occasion? Never 01/03/2024 Personal Safety Answer Date Recorded Have you ever been in or are you currently in a harmful physical or emotional relationship or is someone making you feel afraid or unsafe? Denies 01/03/2024 Comments No Sex and Gender Information Value Date Recorded Sex Assigned at Not on file Legal Sex Female 1:57 PM CDT Gender Identity Not on file Sexual Orientation Not on file documented as of this encounter Functional Status * Difference in Last Two Matt Scores Answer Date of Assessment Author 2 01/03/2024 3:29 PM Me to Echols, RN * Question Answer Date of Assessment Author BP Location Right arm 01/03/2024 11:05 AM Kelle Segura, AMY BP Method Automatic 01/03/2024 11:05 AM Kelle Segura, RN MAP (mmHg) 88 01/03/2024 4:50 PM Rose Echols, RN * Kramer Fall Risk Question Answer Date of Assessment Author History of Falling 0 01/03/2024 3:32 PM Rose Echols, RN Secondary Diagnosis 15 01/03/2024 3:32 PM Rose Zamarripa, informatics educator Aids 0 01/03/2024 3:32 PM Rose Galeas, RN Intravenous Therapy/Heparin/Saline Lock 20 01/03/2024 3:32 PM Me to Echols, RN Gait/Transferring 0 01/03/2024 3:32 PM Rose Echols, RN Mental Status 0 01/03/2024 3:32 PM Rose Dahl, RN Kramer Fall Risk Score (Score >= 45 places fall precaution order) 35 01/03/2024 3:32 PM Rose Echols , RN Prior Fall Event (Autopopulated from EMR) None found 01/03/2024 3:32 PM Itzel Echols sa, RN * Matt Scale Question Answer Date of Assessment Author Sensory Perceptions 3 01/03/2024 3:29 PM Rose Zamarripa, RN Moisture 4 01/03/2024 3:29 PM Rose Echols, RN Activity 4 01/03/2024 3:29 PM Rose Echols, RN Mobility 3 01/03/2024 3:29 PM Rose Echols, RN Nutrition 3 01/03/2024 3:29 PM Rose Echols, RN Friction and Shear 3 01/03/2024 3:29 PM Rose Echols, RN Matt Scale Score 20 01/03/2024 3:29 PM Rose Echols, RN * Fall Risk Interventions Question Answer Date of Assessment Author All Low Fall Interventions Applied Yes 01/03/2024 3:32 PM Rose Echols, RN All Moderate Fall Interventions Applied No 01/03/2024 3:32 PM Rose Echols, RN All Moderate Fall Risk Interventions EXCEPT: PT eval requested or obtained;Fall risk sign with education;Fall risk armband;Gait belt at bedside 01/03/2024 3:32 PM Rose Echols, RN Reason For Exception(s) pacu 01/03/20 24 3:32 PM Rose Echols, RN * Pressure Injury Prevention Question Answer Date of Assessment Author Pressure Ulcer Prevention Interventions Keep skin clean and dry (Sensory Perception/Moistur e) 01/03/2024 3:29 PM Rose Echols, RN * AUDIT-C Score Answer Date of Assessment Author 0 01/03/2024 6:52 AM Divya Farris RN * Alcohol Use Question Answer Date of Assessment Author Q1: How often do you have a drink containing alcohol? Never 01/03/2024 6:52 AM Meghann Farris RN Q2: How many drinks containing alcohol do you have on a typical day when you are drinking? Patient does not drink 01/03/2024 6:52 AM Meghann Farris RN Q3: How often do you have six or more drinks on one occasion? Never 01/03/2024 6:52 AM Meghann Farris RN * Integumentary Question Answer Date of Assessment Author Integumentary (WDL) WDL 01/03/2024 3:29 PM Rose Zamarripa, RN * Matt Scale Question Answer Date of Assessment Author Matt Scale Used Matt 01/03/2024 3:29 PM Rose Echols, RN * Question Answer Date of Assessment Author BP Location Right arm 01/03/2024 11:05 AM JANET beltran, Kelle Villanueva, RN BP Method Automatic 01/03/2024 11:05 AM JANET beltran, Kelle Villanueva, AMY * Fall Risk Interventions Question Answer Date of Assessment Author All Low Fall Interventions Applied Yes 01/03/2024 3:32 PM Rose Echols, AMY All Moderate Fall Interventions Applied No 01/03/2024 3:32 PM Rose Echols, AMY All Moderate Fall Risk Interventions EXCEPT: PT eval requested or obtained;Fall risk sign with education;Fall risk armband;Gait belt at bedside 01/03/2024 3:32 PM Rose Echols, AMY Reason For Exception(s) pacu 01/03/20 3:32 PM Rose Echols, AMY * ADL Screening Question Answer Date of Assessment Author Hearing - Right Ear Functional 12/19/2023 3:42 PM Siobhan Jordan RN Hearing - Left Ear Functional 12/19/2023 3:42 PM Siobhan Barboza RN * Assistive Devices Question Answer Date of Assessment Author Assistive Devices/DME Eyeglasses 12/19/2023 3:42 PM Siobhan Barboza RN documented as of this encounter Mental Status * Question Answer Entry Date Author Level of Consciousness Awake;Drowsy 4:30 PM Rose Echols, AMY Orientation Oriented X4 (person, place, time, situation) 01/03/2024 4:30 PM Rose Echols, AMY Neuro (WDL) WDL 01/03/2024 4:40 PM Rose Echols, AMY documented in this encounter Plan of Treatment Not on file documented as of this encounter Procedures Procedure Name Priority Date/Time Associated Diagnosis Comments BREAST IMAGING MG SCREENING OUTSIDE REFERENCE Routine 03/03/2020 12:00 AM CDT documented in this encounter Results * Breast Imaging Screening Outside Reference (03/03/2020 12:00 AM CDT) Impressions [facility] - 09/02/2023 12:20 PM CDT These images are for Reference purposes only and have not been reviewed by [facility]. There will be no report generated by a [facility] Radiologist. Narrative [facility] - 09/02/2023 12:20 PM CDT EXAMINATION: Images For Reference Purposes Only us Chana Rossi NP IMG MAMMO PROCEDURES Final Result [facility] documented in this encounter Visit Diagnoses Not on filedocumented in this encounter
--- OUTSIDE RECORDS SUMMARY | 2020-03-02 23:00 | XMS_ITS | Encounter Summary ---
Author Organization [facility] Healthcare Address [address] [place] [address] Care Team Providers Care Light Rail Vehicle Operator Name Role Phone Unavailable Primary Care Provider Unavailabl e Reason for Visit * Diagnostic Imaging (Routine) - Closed Specialty Diagnoses / Procedures Referred By Ileana t Referred To Contact Procedures Breast Imaging Screening Outside Reference Chana Rossi NP [address] [facility] [id number] [place] [address] Phone: tel: fax: Referral ID Status Reason Start Date Expiration Date Visits Re quested Visits Authorized [id number] Closed 09/12/2023 10/11/2024 1 1 Encounter Details Date Type Department Care Team (Late st Contact Info) Description 03/03/2020 Hospital Encounter [facility] [address] [place], [place] [id number] Social History Tobacco Use Types Packs/Day Years [...] Diagnosis 15 01/03/2024 3:32 PM Rose Zamarripa, shipping helper Aids 0 01/03/2024 3:32 PM Rose Galeas, [...] RN BP Method Automatic 01/03/2024 11:05 AM NURSE STAFF INDUSTRIAL Karen beltran, Kelle Villanueva, AMY * Fall Risk [...] (WDL) WDL 01/03/2024 4:40 PM Rose Echols, RN documented in this encounter Plan of Treatment Not on file documented as of this encounter Procedures Procedure Name Priority Date/Time Associated Diagnosis Comments BREAST IMAGING MG SCREENING OUTSIDE REFERENCE Routine 03/03/2020 12:00 AM CDT documented in this encounter Results * Breast Imaging Screening Outside Reference (03/03/2020 12:00 AM CDT) Impressions [facility] - 09/12/2023 4:07 PM NURSE STAFF INDUSTRIAL These images are for Reference purposes only and have not been reviewed by [facility]. There will be no report generated by a [facility] Radiologist. Narrative [facility] - 09/12/2023 4:07 PM NURSE STAFF INDUSTRIAL EXAMINATION: Images For Reference Purposes Only us Chana Rossi NP IMG MAMMO PROCEDURES Final Result [facility] documented in this encounter Visit Diagnoses Not on filedocumented in this encounter
--- OUTSIDE RECORDS SUMMARY | 2021-03-05 23:00 | XMS_ITS | Encounter Summary ---
Author Organization [facility] Healthcare Address [address] [place] [address] Care Team Providers Care Scrap Drop Crane Operator Name Role Phone Unavailable Primary Care Provider Unavailabl e Reason for Visit * Diagnostic Imaging (Routine) - Closed Specialty Diagnoses / Procedures Referred By Ileana t Referred To Contact Procedures Breast Imaging Screening Outside Reference Chana Rossi NP [address] [facility] [place] [id number] [place] [address] Phone: tel: fax: Referral ID Status Reason Start Date Expiration Date Visits Re quested Visits Authorized [id number] Closed 09/12/2023 10/11/2024 1 1 Encounter Details Date Type Department Care Team (Late st Contact Info) Description 03/06/2021 Hospital Encounter [facility] [address] [place], [place] [id number] Social History Tobacco Use Types Packs/Day Years [...] 2 01/03/2024 3:29 PM Me to Echols, AMY * Question Answer Date of Assessment Author BP Location Right arm 01/03/2024 11:05 AM Kelle Segura, AMY BP Method Automatic 01/03/2024 11:05 AM Kelle Segura, RN MAP (mmHg) 88 01/03/2024 4:50 PM Rose Echols, RN * Kramer Fall Risk Question Answer Date of Assessment Author History of Falling 0 01/03/2024 3:32 PM Rose Echols, RN Secondary Diagnosis 15 01/03/2024 3:32 PM Rose Zamarripa, beverage sales consultant Aids 0 01/03/2024 3:32 PM Rose Galeas, [...] Echols, RN Reason For Exception(s) pacu 01/03/20 3:32 PM Rose Echols, RN * Pressure [...] Location Right arm 01/03/2024 11:05 AM JANET beltarn, Kelle Villanueva, RN BP Method Automatic 01/03/2024 [...] BREAST IMAGING MG SCREENING OUTSIDE REFERENCE Routine 03/06/2021 12:00 AM CDT documented in this encounter Results * Breast Imaging Screening Outside Reference (03/06/2021 12:00 AM CDT) Impressions [facility] - 09/12/2023 4:07 PM LAP WINDER These images are for Reference purposes only and have not been reviewed by [facility]. There will be no report generated by a [facility] Radiologist. Narrative [facility] - 09/12/2023 4:07 PM LAP WINDER EXAMINATION: Images For Reference Purposes Only us Chana Rossi NP IMG MAMMO PROCEDURES Final Result [facility] documented in this encounter Visit Diagnoses Not on filedocumented in this encounter
--- OUTSIDE RECORDS SUMMARY | 2021-03-05 23:00 | XMS_ITS | Encounter Summary ---
Author Organization [facility] Healthcare Address [address] [place] [address] Care Team Providers Care Build And Deployment Engineer Name Role Phone Unavailable Primary Care Provider Unavailabl e Reason for Visit * Diagnostic Imaging (Routine) - Closed Specialty Diagnoses / Procedures Referred By Ileana t Referred To Contact Procedures Breast Imaging Screening Outside Reference Chana Rossi NP [address] [facility] [place] [id number] [place] [address] Phone: tel: fax: Referral ID Status Reason Start Date Expiration Date Visits Re quested Visits Authorized [id number] Closed 09/02/2023 10/01/2024 1 1 Encounter Details Date Type Department Care Team (Late st Contact Info) Description 03/06/2021 Hospital Encounter [facility] [address] [place], [place] [id number] Social History Tobacco Use Types Packs/Day Years [...] Diagnosis 15 01/03/2024 3:32 PM Rose Zamarripa, family sociologist Aids 0 01/03/2024 3:32 PM Rose Galeas, [...] RN BP Method Automatic 01/03/2024 11:05 AM Kelle Segura, AMY * Fall Risk Interventions Question Answer [...] (03/06/2021 12:00 AM CDT) Impressions [facility] - 09/02/2023 12:20 PM CDT These images are for Reference purposes only and have not been reviewed by [facility]. There will be no report generated by a [facility] Radiologist. Narrative [facility] - 09/02/2023 12:20 PM CDT EXAMINATION: Images For Reference Purposes Only us Chana Rossi NP IMG MAMMO PROCEDURES Final Result [facility] documented in this encounter Visit Diagnoses Not on filedocumented in this encounter
--- NOTE | ~2025-10-01 | MM_ITS ---
EXAMINATION: MM screening [facility] BI w funmi HISTORY: Screening TECHNIQUE: Craniocaudal and mediolateral oblique 3-D tomosynthesis images were obtained and synthetic 2-D images were generated. CAD analysis was submitted and interpreted. COMPARISON: Comparison to multiple prior studies sequentially, with oldest reviewed study dated 03/03/2020. BREAST PARENCHYMAL COMPOSITION: Dense: The breasts are extremely dense, which lowers the sensitivity of mammography. FINDINGS: There is no evidence of suspicious mass, calcification, or architectural distortion to suggest malignancy in either breast. There has been no suspicious interval change. IMPRESSION: 1. No mammographic evidence of malignancy. 2. Recommend routine screening mammography in one year. BI-RADS Category 1: Negative Reviewed, dictated and finalized at location O. [employer]
--- OUTSIDE RECORDS SUMMARY | 2025-10-01 16:07 | XMS_ITS | Encounter Summary ---
Author Organization [facility] Address [address] [place] [address] Phone Care Team Providers Care Home Economics Expert Name Role Phone Ashley Tucker MD Primary Care Provider + [phone] Encounter Details Date Type Department Care Team (Late st Contact Info) Description 09/12/2025 Telephone [facility] Medicine Surgery [address] [facility] [address] [place] [address] Nimisha Ash Social History Tobacco Use Types Packs/Day Years Used Date Smoking Tobacco: Former Cigarettes 1 15 1 1978 Passive Smoke Exposure: Never Smokeless [...] on file documented as of this encounter Plan of Treatment Not on file documented as of this encounter Visit Diagnoses Not on filedocumented in this encounter Care Teams Home Economics Expert Relationship Specialty Start Date End Date Ashley Tucker MD [address] [place] [address] PCP - General Internal Medicine 08/19/23 documented as of this encounter
--- OUTSIDE RECORDS SUMMARY | 2025-10-01 16:07 | XMS_ITS | Clinical Summary ---
Author Organization [facility] Address [address] [place] [address] Care Team Providers Care Financial Service Representative Name Role Phone Ashley Tucker MD Primary Care Provider + [phone] Allergies Active Allergy Reactions Criticality Noted Date Comments Prochlorperazine Other (See comments) Low 4 Possibly given during caused locked Jaw Medications levothyroxine (SYNTHROID) 88 mcg tabletIndicatio ns:hypothyroidi sm Take 1 tablet (88 mcg total) by mouth registered veterinary technician before breakfast 3 Active SUMAtriptan (IMITREX) 50 mg tablet Take 1 tablet (50 mg total) by mouth once as needed for migraine [address] (PROTONIX) 40 mg EC tabletIndicatio ns:Treatment of Non-Bleeding Gastric Disorder,Hx of bleeding ulcer Take 1 tablet (40 mg total) by mouth 2 (two) times a day 4 Active ursodioL (ACTIGALL) 300 mg capsuleIndicati ons:Primary Biliary Cirrhosis Take 1 capsule (300 mg total) by mouth 2 (two) times a day Active [id number]- iron [id number] 35-1-200 mg capsuleIndicati ons:Mineral Deficiency Prevention,Jannette min Deficiency Prevention Take 1 tablet by mouth every morning Active multivitamin with minerals (HAIR,SKIN AND NAILS ORAL)Indication s:supplement Take 1 tablet by mouth every morning Active oxyCODONE (ROXICODONE) 5 mg immediate release tabletIndicatio ns:Pain Take 1 tablet (5 mg total) by mouth every 4 (four) hours as needed for pain 5 tablet 4 Active docusate sodium (COLACE) 100 mg capsuleIndicati ons:constipatio n Take 1 capsule (100 mg total) by mouth 2 (two) times a day 14 capsule 4 Active ALPRAZolam (XANAX) 0.25 mg tablet TAKE 1 TABLET (0.25 MG) BY ORAL ROUTE EVERY 6-8 HOURS FOR ACUTE ANXIETY 4 Active Active Problems Problem Noted Date Diagnosed Date Malignant neoplasm of breast in female, estrogen receptor positive 12/05/2023 Encounters Date Type Department Care Team Description 09/12/2025 Telephone [facility] Medicine Surgery [address] [place] [address] [address] [place] [address] Nimisha Ash 09/11/2025 Orders Only [facility] Medicine Surgery [facility] [address] [place] [address] Chana Rossi NP Encounter for screening mammogram for malignant neoplasm of breast (Primary Dx) from Last 3 Months Surgical History Surgery Date Site/Laterality Comments BREAST BIOPSY 10/20/2023 Right MELANOMA RESECTION 11/07/2006 - 11/06/2007 x2 to back of left leg COLONOSCOPY Medical History Medical History Date Comments Thyroid disease Delayed emergence from general anesthesia Cancer (HCC) Hypothyroidism Family History Medical History Relation Name Comments Lung cancer Father Breast cancer Maternal Grandmother delayed emergence Sister Relation Name Status Comments Father Maternal Grandmother Sister Social History Tobacco Use Types Packs/Day Years Used Date Smoking Tobacco: Former Cigarettes 1 15 1 964 - 1978 Passive Smoke Exposure: Never Smokeless Tobacco: Never Tobacco Cessation:Counseling Given: Not Answered AUDIT-C Answer Date Recorded Q1: How often [...] on file Sexual Orientation Not on file Last Filed Vital Signs Vital Sign Reading Time Taken Comments Blood Pressure 142/72 01/03/2024 4:50 PM FISH HATCHERY ASSISTANT Pulse 52 01/03/2024 4:52 PM FISH HATCHERY ASSISTANT Temperature 36.1 C (97 F) 01/03/2024 3:29 PM FISH HATCHERY ASSISTANT Respiratory Rate 12 01/03/2024 4:52 PM FISH HATCHERY ASSISTANT Oxygen Saturation 94% 01/03/2024 4:52 PM FISH HATCHERY ASSISTANT Inhaled Oxygen Concentration - - Weight 47.2 kg (104 lb) 09/07/2024 12:05 PM CDT Height 152.4 cm (5') 09/07/2024 12:05 PM CDT Body Mass Index 20.31 09/07/2024 12:05 PM CDT Plan of Treatment Health Maintenance Due Date Last Done Comments Depression Screening 1945 Osteoporosis Screening-Bone Density Scan 1945 Hepatitis B Screening 1963 Well Visit 65+ 2010 Zoster Vaccine (2 of 2) 12/16/2020 10/21/2020 Fall Risk Assessment 01/03/2025 01/03/2024 Covid-19 Vaccine (4 - 2024-2 6 season) 2025 09/23/2021, 12/31/2020, 12/10/2020 Influenza Vaccine (#1) 2025 , 10/21/2020, 12/04/2019, Additional history exists DTaP/Tdap/Td Vaccine (2 - Td or Tdap) 03/14/2030 03/14/2020 Pneumococcal vaccine 65+ Completed 020, 11/20/2015, 11/07/2014 Medical Devices Implanted Type Area Windows Systems Engineer Device Identifier Shelf Expiration Date Model / Serial / Lot Bard Peripheral Vascular Ultraclip Bard 17ga 10cm 2 Trigger Permanent Ultrasound [id number] - [id number] Implanted:Qty: 1 on 10/20/2023 at [facility] Right: Breast [employer] [id number] / / Bard Peripheral Vascular Ghiatas 20ga 20cm 7cm Beaded Needle Breast Wire Localization [id number] - [id number] Implanted:Qty: 1 on 01/03/2024 by Christie Umanzor MD at [facility] Right: Breast [employer]ipheral [employer] [id number] / / Insurance [facility] [employer] [employer] Care Teams Financial Service Representative Relationship Specialty Start Date End Date Ashley Tucker MD [address] [place] [address] PCP - General Internal Medicine 08/19/23
== END 2025-10-01 14:14 | disposition home or self-care (01) ==
PROVIDERS: PCP Internal Medicine; Visit Provider Internal Medicine
DX: Z12.31 Encounter for screening mammogram for malignant neoplasm of breast (principal)
CPT/HCPCS: 77063; 77067